=== PATIENT | female | born 1970 | race Caucasian/White ===

== ENCOUNTER 2017-01-25 16:09 | Emergency (ER) | payer OTHER ==
[~2017-01-25] VITALS: Wt 54.4 kg
[~2017-01-25 16:09] MED LIST: ANAPROX DS550 MG PO; ATARAX,VISTARIL50 MG PO; ATIVAN1 MG PO; BACTRIM DS 8001 TA1 PO; BACTROBAN22 TP; BENZONATE100 MG PO; CIPRO500 MG PO; CLEOCIN150 MG PO; CLINDAMYCIN HC300 MG PO; COLACE100 MG PO; CORDROL20 MG PO; DAILY VALUE1 EACH PO; DARVOCET N 1001 TAB PO; DOXYCYCLINE HY100 M3 PO; DOXYCYCLINE100 M2 PO; EXCEDRIN 250 MG1 TA1 PO; FIORICET 325 MG1 TAB PO; FLEXERIL10 MG PO; FLUCONAZOLE100 MG PO; Fioricet 325 MG1 TAB PO; HYDROCODONE BIT1 T11 PO; IBUPROFEN400 MG PO; KENALOG0.1% TP; LIDODERM 5% PATC1 EA PO; MACROBID100 M1 PO; MOBIC15 MG PO; MOTRIN800 MG PO; MULTIPLE VITAMI1 TAB; NORCO 325 MG-101 TAB PO; NORCO 325 MG-51 TAB PO; NORTRIPTYLINE10 MG PO; NOVAPLUS V0.09 MG/Ac IH; PERCOCET 325 MG1 TA5 PO; PREDNISONE10 MG PO; PREDNISONE20 MG PO; PRILOSEC40 M1 PO; PRILOSEC40 MG PO; PYRIDIUM100 MG PO; PYRIDIUM200 MG PO; REGLAN10 MG PO; RESTORIL30 M1 PO; RESTORIL30 MG PO; ROBITUSSIN AC 110 ML PO; SEPTRA DS 800 M1 TAB PO; SINGULAIR10 MG PO; TRAMADOL HCL50 MG PO; TYLENOL W/CODEI1 TA2 PO; TYLENOL W/CODEI1 TA4 PO; TYLENOL500 MG PO; ULTRAM50 MG PO; VIBRAMYCIN100 MG PO; VICODIN 5/500 505 MG; VICODIN 5/500 505 MG PO; VISTARIL25 MG PO; VISTARIL50 MG PO; VOLTAREN50 M1 PO; Vicodin 5/500 505 MG PO; ZITHROMAX Z PA250 MG PO; ZITHROMAX250 MG PO; ZOFRAN4 MG PO; ZYRTEC10 MG PO; [UNRECOGNIZED DRUG - OTHER]
[2017-01-25] MEDS ORDERED: ACYCLOVIR400 MG PO (16:57)
[2017-01-25 17:45] LABS: BILIRUBIN NEGATIVE (NEGATIVE); BLOOD NEGATIVE (NEGATIVE); CLARITY CLEAR (CLEAR); COLOR YELLOW (YELLOW); GLUCOSE NEGATIVE (NEGATIVE); KETONE NEGATIVE (NEGATIVE); LEUKO ESTERASE NEGATIVE (NEGATIVE); NITRITE NEGATIVE (NEGATIVE); PH 5.5 (5.0-9.0); PROTEIN NEGATIVE (NEGATIVE); SPECIFIC GRAVITY <= 1.005 (1.005-1.030); UROBILINOGEN 0.2 E.U./dl (0.2-1.0)
[2017-01-25 17:51] LABS: BACTERIA 1+; RBC 0-2 rbc/hpf (0-2); URINE REFLEX COMMENT NO (NO); WBC 0-2 wbc/hpf (0-5)
== END 2017-01-25 17:46 | disposition home or self-care (01) ==
LOC: ED 16:09
PROVIDERS: Nurse Practitioner Family
DX: L98.499 Non-pressure chronic ulcer of skin of other sites with unspecified severity (principal); F17.200 Nicotine dependence, unspecified, uncomplicated; Z88.0 Allergy status to penicillin; Z88.6 Allergy status to analgesic agent

== ENCOUNTER 2018-02-24 21:37 | Inpatient (IN) | payer OTHER ==
[~2018-02-24] VITALS: Ht 157.4 cm; Wt 47.9 kg
[~2018-02-24 21:37] MED LIST changes: +ACYCLOVIR400 MG PO
[2018-02-24 21:40] VITALS: BP 115/70
[2018-02-24 23:43] VITALS: BP 119/65
[2018-02-24 23:52] LABS: BASO % 0.2 % (0.0-1.0); EOS # 0.1 10*3/uL (0.0-0.4); HEMATOCRIT 40.2 % (37.0-47.0); HEMOGLOBIN 13.3 g/dl (12.0-16.0); LYMPH # 4.3 10*3/uL (1.3-4.4); LYMPH % 46.5 % (27.0-41.0); MEAN CELL VOLUME 89.3 fl (81.0-99.0); MEAN CORPUSCULAR HGB 29.6 pg (27.0-31.0); MEAN CORPUSCULAR HGB CONC 33.1 g/dl (33.0-37.0); MEAN PLATELET VOLUME 11.2 fl (9.6-12.3); MONO % 11.3 % (3.0-9.0); NEUT # 3.7 10*3/uL (2.3-7.9); NEUT % 40.8 % (47.0-73.0); PLATELET COUNT AUTOMATED 230 10*3/uL (130-400); RED CELL DISTRI WIDTH 13.9 % (0-14.5); WHITE BLOOD COUNT 9.1 10*3/uL (4.8-10.8)
[2018-02-25 00:07] LABS: ALBUMIN 3.5 gm/dl (3.1-4.5); ALKALINE PHOSPHATASE 90 U/L (45-117); BUN 13 mg/dl (7-24); CHLORIDE 105 mmol/L (98-107); POTASSIUM 3.5 mmol/L (3.5-5.1); SGOT/AST 13 IU/L (3-35); SGPT/ALT 17 U/L (12-78); SODIUM 139 mmol/L (136-145); TOTAL PROTEIN 7.1 gm/dL (6.4-8.2)
[2018-02-25 01:02] VITALS: BP 114/78
[2018-02-25 01:42] LABS: URINE AMPHETAMINES < 1000 (1000ng/ml); URINE BARBITURATES < 200 (200ng/ml); URINE BENZODIAZEPINES < 200 (200ng/ml); URINE CANNABINOIDS (THC) > 50 (50ng/ml); URINE COCAINE > 300 (300ng/ml); URINE METHADONE < 300 (300ng/ml); URINE OPIATES < 300 (300ng/ml)
[2018-02-25 01:45] LABS: URINE PHENCYCLIDINE < 25 (25ng/ml)
[2018-02-25 02:00] VITALS: BP 107/60
[2018-02-25 02:42] VITALS: BP 138/92
[2018-02-25 08:00] VITALS: BP 93/50
[2018-02-25] MEDS ORDERED: BACTRIM 400-801 EACH PO (10:24)
[2018-02-25 12:00] VITALS: BP 97/63
== END 2018-02-25 13:24 | disposition home or self-care (01) | DRG 600 ==
LOC: ED 21:37 → EDHOLD 02-25 01:09 → 4E 02-25 01:09
PROVIDERS: Emergency Medicine
DX: N61.1 Abscess of the breast and nipple (principal); L03.313 Cellulitis of chest wall; F17.200 Nicotine dependence, unspecified, uncomplicated; F41.1 Generalized anxiety disorder; G56.03 Carpal tunnel syndrome, bilateral upper limbs; G89.4 Chronic pain syndrome; F17.210 Nicotine dependence, cigarettes, uncomplicated; G43.909 Migraine, unspecified, not intractable, without status migrainosus; J44.9 Chronic obstructive pulmonary disease, unspecified; G47.00 Insomnia, unspecified; J30.2 Other seasonal allergic rhinitis; F14.10 Cocaine abuse, uncomplicated; Z88.0 Allergy status to penicillin; Z88.9 Allergy status to unspecified drugs, medicaments and biological substances; Z90.710 Acquired absence of both cervix and uterus; Z98.891 History of uterine scar from previous surgery; Z80.8 Family history of malignant neoplasm of other organs or systems; Z83.3 Family history of diabetes mellitus; Z82.0 Family history of epilepsy and other diseases of the nervous system; Z90.49 Acquired absence of other specified parts of digestive tract; Z82.49 Family history of ischemic heart disease and other diseases of the circulatory system; Z79.899 Other long term (current) drug therapy; Z71.6 Tobacco abuse counseling

== ENCOUNTER → 2020-10-22 | Outpatient (CLI) | payer OTHER ==
[~2020-10-22] MED LIST changes: +BACTRIM 400-801 EACH PO
== END | disposition home or self-care (01) ==
LOC: COVID19 15:19
PROVIDERS: ATTEND Internal Medicine
DX: Z20.822 Contact with and (suspected) exposure to COVID-19 (principal)

== ENCOUNTER → 2020-12-24 | Outpatient (CLI) | payer OTHER | END | disposition home or self-care (01) | LOC: COVID19 16:14 | PROVIDERS: ATTEND Internal Medicine | DX: Z11.52 Encounter for screening for COVID-19 (principal) ==